=== PATIENT | male | born 1995 ===

== ENCOUNTER 2022-09-01 12:57 | Outpatient (REF) | payer MEDICAID, SELFPAY ==
[2022-09-01 19:44] LABS: ALT 41 U/L (16-63); AST 30 U/L (15-37); Albumin 3.8 g/dL (3.4-5.0); Alkaline Phosphatase 112 U/L (46-116); Anion Gap 7.1 mmol/L (3-11); BUN 9 mg/dL (7-18); Bilirubin, Total 0.4 mg/dL (0.2-1.0); CO2 28.9 mmol/L (21.0-32.0); CREATININE 1.1 mg/dL (0.70-1.30); Calcium 8.9 mg/dL (8.5-10.1); Calculated LDL 88 mg/dL (<100); Chloride 106 mmol/L (98-107); Cholesterol 188 mg/dL (<200); Estimated GFR 93.77 (mL/min/1.73m2); Glucose 93 mg/dL (74-106); HDL Cholesterol 72 mg/dL (40-60); Potassium 4.5 mmol/L (3.5-5.1); Sodium 142 mmol/L (136-145); Total Protein 7.5 g/dL (6.4-8.2); Triglyceride 143 mg/dL (<150)
[2022-09-05 16:41] LABS: Alpha-1-Antitrypsin 118 mg/dL (100 - 190)
== END 2022-09-01 12:58 | disposition home or self-care (01) ==
LOC: NCHCN 12:57
PROVIDERS: PCP Physician Assistant; Visit Provider Physician Assistant
DX: R03.0 Elevated blood-pressure reading, without diagnosis of hypertension (principal); Z00.00 Encounter for general adult medical examination without abnormal findings; Z13.89 Encounter for screening for other disorder; J45.20 Mild intermittent asthma, uncomplicated; J18.9 Pneumonia, unspecified organism; R06.02 Shortness of breath; R05.8 Other specified cough
CPT/HCPCS: 80053; 80061; 82103; 82104